=== PATIENT | male | born 1950 | race Caucasian/White ===

== ENCOUNTER 2017-12-31 07:14 | Outpatient (CLI) | payer MEDICARE, OTHER ==
[~2017-12-31] VITALS: Ht 182.9 cm; Wt 135.0 kg
[~2017-12-31 07:14] MED LIST: ADVIL PM 38 MG-1 TAB PO; ASPIRIN 81M81 MG/TA2 PO; CARDIZEM CD 18180 MG PO; COREG 6.256.25 MG/TA PO; COREG12.5 MG PO; DARVOCET-N-101 UDTAB PO; FLOMAX 0.40.4 MG/CAP PO; LEVAQUIN 5500 MG/TA1 PO; MOTRIN800 MG PO; NORCO 325 MG-51 TAB PO; PERCOCET 5/321 UDTAB PO; PREDNISONE20 MG PO
[2017-12-31] MEDS ORDERED: EPA FISH OIL1 SGL PO (08:17)
[2017-12-31] MEDS ORDERED: COUMADIN 5MG5 MG/TAB PO (08:18)
[2017-12-31] MEDS ORDERED: 00186-0372-20 IH (08:19)
[2017-12-31 08:34] VITALS: BP 122/78; PULSE 48; TEMP 98
[2017-12-31] MEDS ORDERED: CEPHALEXIN500 M1 PO (09:45)
[2017-12-31 10:00] VITALS: BP 149/88; PULSE 55; TEMP 97.8
== END 2017-12-31 10:05 | disposition home or self-care (01) ==
LOC: COL.CAR 07:14
DX: I48.0 Paroxysmal atrial fibrillation (principal); I25.10 Atherosclerotic heart disease of native coronary artery without angina pectoris; I10 Essential (primary) hypertension; G47.33 Obstructive sleep apnea (adult) (pediatric); E78.5 Hyperlipidemia, unspecified; M19.90 Unspecified osteoarthritis, unspecified site; I45.10 Unspecified right bundle-branch block; Z88.3 Allergy status to other anti-infective agents; Z79.82 Long term (current) use of aspirin; Z79.01 Long term (current) use of anticoagulants; Z87.891 Personal history of nicotine dependence; Z87.442 Personal history of urinary calculi; Z86.79 Personal history of other diseases of the circulatory system; Z80.9 Family history of malignant neoplasm, unspecified; Z81.8 Family history of other mental and behavioral disorders
CPT/HCPCS: 27124; C1764

== ENCOUNTER 2018-02-11 08:26 | Day surgery (SDC) | payer MEDICARE, OTHER ==
[~2018-02-11] VITALS: Ht 183 cm; Wt 134.7 kg
[~2018-02-11 08:26] MED LIST changes: +00186-0372-20 IH; +CEPHALEXIN500 M1 PO; +COUMADIN 5MG5 MG/TAB PO; +EPA FISH OIL1 SGL PO
[2018-02-11] MEDS ORDERED: NITROSTAT0.4 MG/TAB SL (09:06)
[2018-02-11 09:07] VITALS: BP 147/83; PULSE 53; TEMP 98.1
[2018-02-11] MEDS ORDERED: TAMBOCOR 1100 MG/TAB PO (09:26)
== END 2018-02-11 10:42 | disposition home or self-care (01) ==
LOC: COL.CAR 08:26
DX: I48.91 Unspecified atrial fibrillation (principal); Z53.8 Procedure and treatment not carried out for other reasons; Z95.818 Presence of other cardiac implants and grafts; I10 Essential (primary) hypertension; I25.10 Atherosclerotic heart disease of native coronary artery without angina pectoris; G47.33 Obstructive sleep apnea (adult) (pediatric); I83.90 Asymptomatic varicose veins of unspecified lower extremity; E78.5 Hyperlipidemia, unspecified; Z79.01 Long term (current) use of anticoagulants; Z79.899 Other long term (current) drug therapy; Z79.82 Long term (current) use of aspirin

== ENCOUNTER 2018-03-27 16:22 | Emergency (ER) | payer MEDICARE, OTHER ==
[~2018-03-27] VITALS: Ht 182.9 cm; Wt 131.8 kg
[~2018-03-27 16:22] MED LIST changes: +BETAPACE 80MG80 MG PO; +NITROSTAT0.4 MG/TAB SL; +TAMBOCOR 1100 MG/TAB PO
[2018-03-27 16:58] LABS: COLLECTION METHOD CLEAN CATCH
[2018-03-27 17:02] LABS: BASO % 0.3 % (0.0-2.0); EOS # 0.2 (0.0-0.7); EOS % 1.9 % (0-4.0); GRAN # 9.9 (1.4-6.5); GRAN % 81.9 % (42.2-75.2); HEMATOCRIT 48.3 % (42.0-52.0); LYMPH # 0.8 (1.2-3.4); LYMPH % 6.7 % (20.0-51.0); MEAN CELL VOLUME 92 fl (80.0-100.0); MEAN CORPUSCULAR HEMOGLOBIN 31 pg (27.0-31.0); MEAN CORPUSCULAR HGB CONC 33 g/dl (33.0-37.0); MEAN PLATELET VOLUME 11.7 fl (7.4-10.4); MONO # 1.1 (0.1-0.6); MONO % 8.8 % (1.7-9.3); PLATELET COUNT 154 K/mm3 (130-400); RED BLOOD COUNT 5.24 M/mm3 (4.20-5.60); REDCELL DISTRIBUTION WIDTH-CV 13.2 % (11.5-14.5)
[2018-03-27 17:10] LABS: PH 5 (5-8); SQUAMOUS EPITHELIAL 0-2 /hpf; URINE APPEARANCE Clear; URINE BACTERIA None Seen /hpf; URINE BILIRUBIN Negative (NEGATIVE); URINE BLOOD 3+ (NEGATIVE); URINE COLOR Yellow; URINE GLUCOSE Negative (NEGATIVE); URINE KETONE Trace (NEGATIVE); URINE LEUKOCYTE ESTERASE Negative (NEGATIVE); URINE NITRATE Negative (NEGATIVE); URINE PROTEIN(semi-quant) Negative (NEGATIVE); URINE RBC >50 /hpf; URINE UROBILINOGEN Negative (NEGATIVE)
[2018-03-27 17:15] LABS: ALBUMIN 4.1 gm/dL (3.5-5.0); BILIRUBIN,TOTAL 0.9 mg/dL (0.0-1.0); C-REACTIVE PROTEIN 1.6 mg/dL (0.0-0.9); CALCIUM 8.7 mg/dL (8.4-10.2); CREATININE, serum 0.92 mg/dL (0.66-1.25); POTASSIUM 4.4 mmol/L (3.4-5.0); TOTAL PROTEIN 7.2 gm/dL (6.4-8.2)
[2018-03-27] MEDS ORDERED: NORCO 325 MG-51 TAB PO (18:10)
[2018-03-27 19:10] VITALS: BP 150/83; PULSE 71; TEMP 98
== END 2018-03-27 19:40 | disposition home or self-care (01) ==
LOC: COL.ER 16:22
PROVIDERS: Family Medicine
DX: N20.1 Calculus of ureter (principal); Z87.442 Personal history of urinary calculi; Z95.0 Presence of cardiac pacemaker
CPT/HCPCS: J2270; J2405; J7030

== ENCOUNTER → 2020-12-12 | Outpatient (CLI) | payer MEDICARE, OTHER | LOC: COL.RAD 09:17 | DX: M17.12 Unilateral primary osteoarthritis, left knee (principal); S83.282A Other tear of lateral meniscus, current injury, left knee, initial encounter; M71.22 Synovial cyst of popliteal space [Baker], left knee; M94.262 Chondromalacia, left knee ==